=== PATIENT | male | born 1985 | race Caucasian/White ===

== ENCOUNTER 2018-11-07 13:31 | Emergency (ER) | payer OTHER ==
[~2018-11-07] VITALS: Ht 177.8 cm; Wt 90.7 kg
[2018-11-07 15:19] VITALS: BP 144/88
== END 2018-11-07 15:20 | disposition home or self-care (01) ==
LOC: M.ERS 13:31
DX: S61.421A Laceration with foreign body of right hand, initial encounter (principal); Z88.0 Allergy status to penicillin; W26.8XXA Contact with other sharp object(s), not elsewhere classified, initial encounter; Y93.89 Activity, other specified; Y92.89 Other specified places as the place of occurrence of the external cause; Y99.8 Other external cause status